=== PATIENT | female | born 1940 | race Two or more races ===

== ENCOUNTER 2019-07-18 13:43 | Outpatient (CLI) | payer OTHER ==
[~2019-07-18 13:43] MED LIST: AMOX1TAB5 PO; ASA81 MG; ATENOLOL25 MG; CIPRO500 MG PO; COZAAR50 MG; DICLOFENAC SODI50 MG PO; KETO10TA2 PO; LIPITOR40 MG; NAMENDA10 MG; SKELAXIN800 MG PO; ULTRACET PO; XANAX XR0.5 MG; ZANTAC300 MG PO
== END 2019-07-18 14:30 | disposition home or self-care (01) ==
LOC: TOM 13:43
DX: M81.0 Age-related osteoporosis without current pathological fracture (principal); S22.31XA Fracture of one rib, right side, initial encounter for closed fracture; Z87.310 Personal history of (healed) osteoporosis fracture

== ENCOUNTER 2019-08-01 14:03 | Outpatient (CLI) | payer OTHER | END 2019-08-01 14:18 | disposition home or self-care (01) | LOC: RAD 14:03 | DX: M79.631 Pain in right forearm (principal); M54.2 Cervicalgia ==

== ENCOUNTER 2020-03-11 09:53 | Outpatient (CLI) | payer OTHER | END 2020-03-11 09:59 | disposition home or self-care (01) | LOC: NUCLEAR 09:53 | PROVIDERS: ATTEND Obstetrics & Gynecology Gynecology | DX: M81.0 Age-related osteoporosis without current pathological fracture (principal) ==

== ENCOUNTER 2020-05-23 08:33 | Outpatient (CLI) | payer OTHER | END 2020-05-23 08:50 | disposition HB | LOC: SONOGRAMA 08:33 | PROVIDERS: ATTEND Obstetrics & Gynecology Gynecology | DX: R10.84 Generalized abdominal pain (principal); N83.01 Follicular cyst of right ovary; R10.2 Pelvic and perineal pain; N60.12 Diffuse cystic mastopathy of left breast; N60.11 Diffuse cystic mastopathy of right breast; R10.11 Right upper quadrant pain; C50.011 Malignant neoplasm of nipple and areola, right female breast; E66.8 Other obesity ==

== ENCOUNTER 2021-09-10 10:26 | Outpatient (CLI) | payer OTHER | END 2021-09-10 10:28 | disposition home or self-care (01) | LOC: RAD 10:26 | PROVIDERS: ATTEND Internal Medicine | DX: R10.84 Generalized abdominal pain (principal) ==

== ENCOUNTER → 2022-06-17 | Outpatient (CLI) | payer OTHER | END | disposition home or self-care (01) | LOC: NUCLEAR 06-08 09:00 | PROVIDERS: ATTEND Internal Medicine Cardiovascular Disease | DX: R00.2 Palpitations (principal) ==

== ENCOUNTER 2023-08-03 11:51 | Outpatient (CLI) | payer OTHER ==
[~2023-08-03 11:51] MED LIST changes: +CYMBALTA20 MG PO; +CYMBALTA30 MG PO; +DULOXETINE HCL30 MG PO; +GABAPENTIN100 M2 PO; +GABAPENTIN300 M2 PO
== END 2023-08-03 11:58 | disposition home or self-care (01) ==
LOC: RAD 11:51
DX: J91.8 Pleural effusion in other conditions classified elsewhere (principal)

== ENCOUNTER 2024-03-29 08:08 | Outpatient (CLI) | payer OTHER | END 2024-03-29 08:26 | disposition home or self-care (01) | LOC: TOM 08:08 | PROVIDERS: ATTEND Internal Medicine | DX: K57.33 Diverticulitis of large intestine without perforation or abscess with bleeding (principal) | CPT/HCPCS: 74177; Q9965 ==